=== PATIENT | male | born 1960 | race Asian ===

== ENCOUNTER 2025-06-11 17:49 | Inpatient (IN) | payer OTHER ==
[~2025-06-11] VITALS: Ht 157.5 cm; Wt 61.3 kg
[2025-06-11 17:50] VITALS: PULSE 107; RESP 24; O2SAT 100
[2025-06-11 18:13] LABS: PLATELET COUNT (AUTO) 275 K/uL (150-450); RED BLOOD CELL COUNT(AUTO) 3.01 MIL/uL (4.50-5.90); RED CELL DISTRIBUTION WIDTH 13.7 % (11.5-14.5); WHITE BLOOD COUNT (AUTO) 9.2 K/uL (4.5-11.0)
[2025-06-11 18:27] LABS: TROPONIN I-HIGH SENSITIVITY 32 ng/L (<76)
[2025-06-11 18:51] LABS: CALCIUM, TOTAL 7.5 mg/dL (8.8-10.5); CREATININE 5.07 mg/dL (0.60-1.30); GLOMERULAR FILTR. RATE CALC 12.0 mL/min (>60); GLUCOSE,RANDOM 157.0 mg/dL (70-110); SODIUM SERUM 140.0 mmol/L (136-145); UREA NITROGEN, BLOOD 45.0 mg/dL (7-18)
[2025-06-11 19:00] VITALS: PULSE 102; RESP 32; O2SAT 100; O2SAT 80
[2025-06-11] MEDS ORDERED: NITROGLYCERIN 0.4 MG SUBLINGUAL TABLET #25 SL ONE (19:07)
[2025-06-11] MEDS: NITROGLYCERIN 0.6 MG SUBLINGUAL TABLET #100 SL ONE (19:11)
[2025-06-11] MEDS ORDERED: NITROGLYCERIN 0.6 MG SUBLINGUAL TABLET #100 SL ONE (19:15)
[2025-06-11] MEDS ORDERED: KETAMINE HCL 50 MG/ML 10 ML VIAL ONE (19:20)
[2025-06-11] MEDS: KETAMINE HCL 50 MG/ML 10 ML VIAL IVP ONE ×2 (19:34→19:52)
[2025-06-11] MEDS: NITROGLYCERIN 50 MG/D5% WATER 250 ML IV PRN (19:52)
[2025-06-11 19:57] LABS: ABG BASE EXCESS -5.9 mmol/L (-2.0-3.0); ABG CARBOXYHEMOGLOBIN 0.2 % (0.5-1.5); ABG HCO3 20.1 mmol/L (21.0-28.0); ABG METHEMOGLOBIN 1.4 % (0.0-1.5); ABG OXYGEN CONTENT 14.0 mL/dL (15.0-23.0); ABG OXYGEN SATURATION 99.4 % (94.0-98.0); ABG OXYHEMOGLOBIN 97.8 % (94.0-98.0); ABG PCO2 38 mmHg (32.0-48.0); ABG PH 7.337 (7.350-7.450); ABG TOTAL HEMOGLOBIN 9.6 G/dL (13.5-17.5); FRACTIONATED INSPIRED OXYGEN 100.0 % (21-100.0); PO2, ARTERIAL BG 292.6 mmHg (83.0-108.0); SOURCE, BLOOD GAS ARTERIAL; TEMPERATURE, FAHRENHEIT, BG 99.4 FAHREN (96.0-98.6)
[2025-06-11 19:59] LABS: ABG A-A DIFF O2 381.3 mmHg (10-20.0); O2 DEVICE,BLOOD GAS BIPAP (ROOM AIR); SITE, BLOOD GAS LFT BRACHIAL
[2025-06-11 20:00] LABS: PATIENT RATE, BG 26.0 min.; SET RATE, BG 20.0 min.; VENT MODE, BG NIPPV (ROOM AIR)
[2025-06-11 20:01] LABS: INSPIRATORY TIME, BG 0.90 SEC
[2025-06-11] MEDS: FUROSEMIDE 20 MG/2 ML VIAL IVP ONE (20:23)
[2025-06-11 20:29] LABS: APPEARANCE,URINE CLEAR (CLEAR); GLUCOSE, URINE (UA) NEGATIVE (NEGATIVE); LEUKOCYTE ESTERASE ,URINE NEGATIVE (NEGATIVE); NITRATE,URINE NEGATIVE (NEGATIVE); OCCULT BLOOD,URINE SMALL (NEGATIVE); SPECIFIC GRAVITIY, URINE 1.012 (1.003-1.030)
[2025-06-11] MEDS ORDERED: ACETAMINOPHEN 325 MG TABLET PO PRN (20:30)
[2025-06-11] MEDS ORDERED: ZOLPIDEM TARTRATE 5 MG TABLET PO PRN (20:30)
[2025-06-11] MEDS ORDERED: HYDROCODONE/ACETAMINOPHEN 5-325 MG TABLET PO PRN (20:30)
[2025-06-11] MEDS ORDERED: MAGNESIUM HYDROXIDE SUSPENSION 30 ML UDCUP PO PRN (20:30)
[2025-06-11] MEDS ORDERED: MORPHINE SULFATE 4 MG/ML SYRINGE IVP PRN (20:30)
[2025-06-11] MEDS ORDERED: ONDANSETRON HCL 4 MG/2 ML VIAL IVP PRN (20:30)
[2025-06-11] MEDS ORDERED: BISACODYL 10 MG RECTAL RECTAL SUPPOSITORY PR PRN (20:30)
[2025-06-11 20:43] LABS: SULFOSALICYLIC ACID,URINE 4+ (Negative)
[2025-06-11 20:45] LABS: SQUAMOUS EPITHELIAL CELL,UR Few /LPF (None Seen)
[2025-06-11] MEDS: LABETALOL HCL 100 MG TABLET PO SCH (21:09)
[2025-06-11] MEDS: DOCUSATE SODIUM 100 MG CAPSULE PO SCH (21:09)
[2025-06-11] MEDS: FUROSEMIDE 20 MG/2 ML VIAL IVP SCH (21:09)
[2025-06-11 22:10] VITALS: PULSE 77; RESP 23; O2SAT 100
[2025-06-11 22:16] LABS: ABG BASE EXCESS -6.7 mmol/L (-2.0-3.0); ABG CARBOXYHEMOGLOBIN 0.6 % (0.5-1.5); ABG HCO3 19.6 mmol/L (21.0-28.0); ABG METHEMOGLOBIN 1.4 % (0.0-1.5); ABG OXYGEN CONTENT 13.2 mL/dL (15.0-23.0); ABG OXYGEN SATURATION 99.5 % (94.0-98.0); ABG OXYHEMOGLOBIN 97.5 % (94.0-98.0); ABG PCO2 31 mmHg (32.0-48.0); ABG PH 7.389 (7.350-7.450); ABG TOTAL HEMOGLOBIN 9.1 G/dL (13.5-17.5); FRACTIONATED INSPIRED OXYGEN 80.0 % (21-100.0); PO2, ARTERIAL BG 268.5 mmHg (83.0-108.0); SOURCE, BLOOD GAS ARTERIAL; TEMPERATURE, FAHRENHEIT, BG 98.2 FAHREN (96.0-98.6)
[2025-06-11 22:19] LABS: ABG A-A DIFF O2 269.8 mmHg (10-20.0); ALLEN TEST, BLOOD GAS Positive; O2 DEVICE,BLOOD GAS BIPAP (ROOM AIR); SITE, BLOOD GAS LFT RADIAL
[2025-06-11 22:20] LABS: PATIENT RATE, BG 23.0 min.; SET RATE, BG 20.0 min.; SPONTANEOUS VT, BG 880 ml
[2025-06-11] MEDS: HEPARIN SODIUM,PORCINE 5,000 UNITS/ML VIAL SQ SCH (23:37)
[2025-06-12 01:40] VITALS: PULSE 90; RESP 24; O2SAT 100
[2025-06-12 05:36] LABS: PLATELET COUNT (AUTO) 239 K/uL (150-450); RED BLOOD CELL COUNT(AUTO) 2.73 MIL/uL (4.50-5.90); RED CELL DISTRIBUTION WIDTH 13.6 % (11.5-14.5); WHITE BLOOD COUNT (AUTO) 11.2 K/uL (4.5-11.0)
[2025-06-12 05:37] LABS: CALCIUM, TOTAL 7.4 mg/dL (8.8-10.5); CREATININE 5.0 mg/dL (0.60-1.30); GLOMERULAR FILTR. RATE CALC 12.0 mL/min (>60); GLUCOSE,RANDOM 124.0 mg/dL (70-110); SODIUM SERUM 139.0 mmol/L (136-145); UREA NITROGEN, BLOOD 53.0 mg/dL (7-18)
[2025-06-12 08:00] VITALS: PULSE 90
[2025-06-12] MEDS: PANTOPRAZOLE SODIUM 40 MG DR TABLET PO SCH (08:20)
[2025-06-12] MEDS ORDERED: PANT-31 PO (09:15)
[2025-06-12] MEDS ORDERED: DOXA8 PO (09:17)
[2025-06-12] MEDS ORDERED: MULT-662 PO (09:17)
[2025-06-12] MEDS ORDERED: SEVE0.8P PO (09:19)
[2025-06-12] MEDS ORDERED: LABE200T56 PO (09:20)
[2025-06-12] MEDS ORDERED: ASPI81TA87 PO (09:21)
[2025-06-12] MEDS ORDERED: CHOL10CA2 PO (09:23)
[2025-06-12] MEDS ORDERED: FOLI-130 PO (09:23)
[2025-06-12] MEDS ORDERED: DOCU250C17 PO (09:24)
[2025-06-12] MEDS ORDERED: HYDR25TA84 PO (09:25)
[2025-06-12] MEDS ORDERED: NIFE-40 PO (09:26)
[2025-06-12] MEDS ORDERED: SODI650T33 PO (09:26)
[2025-06-12] MEDS ORDERED: ATOR-427 PO (09:28)
[2025-06-12 12:00] VITALS: BP 160/94; PULSE 90; RESP 12; O2SAT 100
[2025-06-12 12:12] VITALS: BP 149/86; PULSE 83; RESP 13; O2SAT 100
[2025-06-12] MEDS ORDERED: DOXA1TAB2 PO (13:09)
[2025-06-12] MEDS ORDERED: CALC0.2521 PO (13:09)
[2025-06-12] MEDS ORDERED: CHOL100062 PO (13:09)
[2025-06-12] MEDS ORDERED: ASPI-1451 PO (13:09)
[2025-06-12] MEDS ORDERED: SEVE800T39 PO (13:09)
[2025-06-12] MEDS ORDERED: ATOR40TA28 PO (13:09)
[2025-06-12] MEDS: ATORVASTATIN CALCIUM 40 MG TABLET PO SCH (15:21)
[2025-06-12] MEDS: BUMETANIDE 0.25 MG/ML 4 ML VIAL IVP SCH (15:21)
[2025-06-12] MEDS: ASPIRIN 81 MG CHEWABLE TABLET PO SCH (15:22)
[2025-06-12 16:00] VITALS: BP 122/73; PULSE 88; RESP 16; TEMP 99; O2SAT 100
[2025-06-12] MEDS: SEVELAMER CARBONATE 800 MG TABLET PO SCH (17:31)
[2025-06-12 19:41] LABS: GLUCOMETER DEV NAME(LOC) ICU.S7; GLUCOSE,POINT OF CARE 119 MG/DL (70-110)
[2025-06-12 20:00] VITALS: BP 133/77; PULSE 90; RESP 17; TEMP 96.7; O2SAT 97
[2025-06-12] MEDS: ETHYL ALCOHOL 62% ANTISEPTIC NASAL SANITIZER 0.6 ML AMPUL NASAL SCH (20:50)
[2025-06-12] MEDS: SODIUM BICARBONATE 650 MG TABLET PO SCH (20:51)
[2025-06-12] MEDS: DOXAZOSIN MESYLATE 1 MG TABLET PO SCH (20:51)
[2025-06-12] MEDS ORDERED: BUMETANIDE 1 MG TABLET PO SCH (21:00)
[2025-06-12] MEDS: LABETALOL HCL 200 MG TABLET PO SCH (22:33)
[2025-06-13] VITALS (8 sets, daily range): BP systolic 107–139; BP diastolic 67–90; PULSE 71–89; RESP 14–18; TEMP 96.4–98.8; O2SAT 93–98
[2025-06-13 05:48] LABS: PLATELET COUNT (AUTO) 217 K/uL (150-450); RED BLOOD CELL COUNT(AUTO) 3.00 MIL/uL (4.50-5.90); RED CELL DISTRIBUTION WIDTH 13.8 % (11.5-14.5); WHITE BLOOD COUNT (AUTO) 9.5 K/uL (4.5-11.0)
[2025-06-13 05:52] LABS: CALCIUM, TOTAL 7.5 mg/dL (8.8-10.5); CREATININE 5.21 mg/dL (0.60-1.30); GLOMERULAR FILTR. RATE CALC 11.0 mL/min (>60); GLUCOSE,RANDOM 105.0 mg/dL (70-110); SODIUM SERUM 142.0 mmol/L (136-145); UREA NITROGEN, BLOOD 51.0 mg/dL (7-18)
[2025-06-13] MEDS: POTASSIUM CHLORIDE 20 MEQ ER TABLET PO ONE (06:21)
[2025-06-13] MEDS: CHOLECALCIFEROL (VIT D3) 1,000 UNITS [25 MCG] TABLET PO SCH (08:31)
[2025-06-13] MEDS: FOLIC ACID 1 MG TABLET PO SCH (08:31)
[2025-06-14] VITALS (7 sets, daily range): BP systolic 119–153; BP diastolic 82–95; PULSE 73–85; RESP 16–18; TEMP 98–98.4; O2SAT 96–100
[2025-06-14 06:41] LABS: PLATELET COUNT (AUTO) 231 K/uL (150-450); RED BLOOD CELL COUNT(AUTO) 3.04 MIL/uL (4.50-5.90); RED CELL DISTRIBUTION WIDTH 13.7 % (11.5-14.5); WHITE BLOOD COUNT (AUTO) 8.9 K/uL (4.5-11.0)
[2025-06-14 06:50] LABS: CALCIUM, TOTAL 7.6 mg/dL (8.8-10.5); CREATININE 5.21 mg/dL (0.60-1.30); GLOMERULAR FILTR. RATE CALC 11.0 mL/min (>60); GLUCOSE,RANDOM 102.0 mg/dL (70-110); SODIUM SERUM 141.0 mmol/L (136-145); UREA NITROGEN, BLOOD 55.0 mg/dL (7-18)
[2025-06-14] MEDS: POTASSIUM CHLORIDE 20 MEQ ER TABLET PO ONE ×2 (11:52→17:51)
[2025-06-15 04:55] VITALS: BP 138/88; PULSE 74; RESP 18; TEMP 97.9; O2SAT 98
[2025-06-15 06:24] LABS: PLATELET COUNT (AUTO) 233 K/uL (150-450); RED BLOOD CELL COUNT(AUTO) 3.19 MIL/uL (4.50-5.90); RED CELL DISTRIBUTION WIDTH 13.4 % (11.5-14.5); WHITE BLOOD COUNT (AUTO) 8.6 K/uL (4.5-11.0)
[2025-06-15 06:30] LABS: CALCIUM, TOTAL 7.7 mg/dL (8.8-10.5); CREATININE 5.07 mg/dL (0.60-1.30); GLOMERULAR FILTR. RATE CALC 12.0 mL/min (>60); GLUCOSE,RANDOM 103.0 mg/dL (70-110); SODIUM SERUM 141.0 mmol/L (136-145); UREA NITROGEN, BLOOD 60.0 mg/dL (7-18)
[2025-06-15 07:20] VITALS: BP 130/88; PULSE 78; RESP 18; TEMP 98.8; O2SAT 97
[2025-06-15 11:47] VITALS: BP 123/80; PULSE 71; RESP 18; TEMP 98; O2SAT 96
[2025-06-15] MEDS ORDERED: ISOS30TA92 PO (12:48)
[2025-06-15] MEDS ORDERED: BUME1TAB50 PO (12:50)
== END 2025-06-15 14:10 | disposition home or self-care (01) | DRG 194 ==
LOC: EMS 17:49 → EDH 20:22 → ICU 06-12 07:30 → 5S 06-13 11:05
PROVIDERS: ADMIT Internal Medicine; ATTEND Internal Medicine
PROC: 5A09357 Assistance with Respiratory Ventilation, Less than 24 Consecutive Hours, Continuous Positive Airway Pressure (ICD-10-PCS; principal; 2025-06-11)
DX: I13.2 Hypertensive heart and chronic kidney disease with heart failure and with stage 5 chronic kidney disease, or end stage renal disease (principal); J96.00 Acute respiratory failure, unspecified whether with hypoxia or hypercapnia; E87.20 Acidosis, unspecified; N18.6 End stage renal disease; D63.1 Anemia in chronic kidney disease; I50.31 Acute diastolic (congestive) heart failure; I16.1 Hypertensive emergency; E78.5 Hyperlipidemia, unspecified; E87.6 Hypokalemia; F17.210 Nicotine dependence, cigarettes, uncomplicated; I73.9 Peripheral vascular disease, unspecified; N25.81 Secondary hyperparathyroidism of renal origin; K21.9 Gastro-esophageal reflux disease without esophagitis; Z89.422 Acquired absence of other left toe(s); Z79.899 Other long term (current) drug therapy; Z79.82 Long term (current) use of aspirin
CPT/HCPCS: 51702; 71045; 80048; 81001; 81002; 82805; 82962; 83880; 84132; 84484; 85025; 87081; 93005; 94660; 94760; 96374; 96375; 99285; J0360; J1644; J1938; J3490; J7050; 36415-L1; 36415-TC